=== PATIENT | female | born 1950 | race Caucasian/White ===

== ENCOUNTER 2017-11-29 11:15 | Emergency (ER) | payer MEDICARE ==
[2017-11-29 11:49] VITALS: BP 153/81; PULSE 86; RESP 20; TEMP 98.6; O2SAT 96
[2017-11-29] MEDS ORDERED: COUM10TA PO ×4 (12:07)
[2017-11-29] MEDS ORDERED: DICY10 PO (12:07)
[2017-11-29] MEDS ORDERED: TELM1TAB56 PO (12:07)
[2017-11-29] MEDS ORDERED: DILT60TA33 PO (12:07)
[2017-11-29] MEDS ORDERED: METO25TA3 PO (12:09)
[2017-11-29] MEDS ORDERED: TOPI100 PO (12:09)
[2017-11-29] MEDS ORDERED: SODIUM CHLOR 0.9% 1000 ML INJ 1,000 ML IV SCH (12:15)
[2017-11-29] MEDS ORDERED: PANTOPRAZOLE SODIUM 40 MG VIAL IVP ONE (12:15)
[2017-11-29] MEDS ORDERED: metroNIDAZOLE 500 MG INJ 100 ML IV ONE (12:15)
[2017-11-29] MEDS ORDERED: LEVOFLOXACIN 750 MG PREMIX INJ 150 ML IV ONE (12:15)
--- NOTE | 2017-11-29 12:15 | PD ---
HPI Chief Complaint: GI Complaint Time Seen by Provider: 11:55 Travel History International Travel<30 days: No Contact w/Intl Traveler<30days: No Traveled to known affect area: No History of Present Illness HPI 67 years old female complains of abdominal pain and rectal bleeding. Patient has history of recurrent diverticulitis with rectal bleeding for the past few years. 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 Patient checked her INR frequently at home. INR has been in good range recently. Patient started having left lower quadrant abdominal pain with nausea and rectal bleeding since this morning. Patient states the pain in cramping pain is sharp pain localized to left low quadrant of the abdomen. Patient stated the pain radiated to the back. Patient denies any fever chills. PFSH Past Medical History Hx Anticoagulant Therapy: Yes Cardiovascular Problems: Yes Cerebrovascular Accident: Yes Past Surgical History Hysterectomy: Yes Social History Tobacco Use: No Allergies-Medications (Allergen,Severity, Reaction): Coded Allergies: morphine (Verified Allergy, Unknown, 11/29/17) Reported Meds & Prescriptions Reported Meds & Active Scripts Active Ultram (Tramadol HCl) 50 Mg Tab 50 Mg PO Q6H PRN Zofran Odt (Ondansetron Odt) 4 Mg Tab 4 Mg SL Q6HR PRN Flagyl (Metronidazole) 500 Mg Tab 500 Mg PO TID Cipro (Ciprofloxacin HCl) 500 Mg Tab 500 Mg PO BID Reported Metoprolol Tartrate 25 Mg Tab 25 Mg PO BID Topamax (Topiramate) 100 Mg Tab 100 Mg PO BID Coumadin (Warfarin) 10 Mg Tab 10 Mg PO M,T,W,,SAT Coumadin (Warfarin) 10 Mg Tab 12 Mg PO MONDAY Coumadin (Warfarin) 10 Mg Tab 12 Mg PO MONDAY Cardizem (Diltiazem HCl) 60 Mg Tab 120 Mg PO HS Micardis (Telmisartan) 80 Mg Tab 80 Mg PO DAILY Bentyl (Dicyclomine HCl) 10 Mg Cap 10 Mg PO QID Review of Systems General / Constitutional: No: Fever Eyes: No: Visual changes HENT: No: Headaches Cardiovascular: No: Chest Pain or Discomfort Respiratory: No: Shortness of Breath Gastrointestinal: Positive: Abdominal Pain, Hematochezia Genitourinary: No: Dysuria Musculoskeletal: No: Pain Skin: No Rash Neurologic: No: Weakness Psychiatric: No: Depression Endocrine: No: Polydipsia Hematologic/Lymphatic: No: Easy Bruising Physical Exam Narrative GENERAL: Well-nourished, well-developed patient. SKIN: Focused skin assessment warm/dry. HEAD: Normocephalic. EYES: No scleral icterus. No injection or drainage. NECK: Supple, trachea midline. No JVD or lymphadenopathy. CARDIOVASCULAR: Regular rate and rhythm without murmurs, gallops, or rubs. RESPIRATORY: Breath sounds equal bilaterally. No accessory muscle use. GASTROINTESTINAL: Abdomen soft, nondistended. Patient has moderate tenderness on palpation left lower quadrant of the abdomen. No rebound tenderness. No mass. Rectal exam shows yellow stool with trace of reddish discoloration. Hemoccult positive. MUSCULOSKELETAL: No cyanosis, or edema. BACK: Nontender without obvious deformity. No CVA tenderness. Neurologic exam normal. Data Data Last Documented VS Vital Signs Date Time Temp Pulse Resp B/P (MAP) Pulse Ox O2 Delivery O2 Flow Rate FiO2 11/29/17 16:07 70 109/68 (82) 97 11/29/17 11:49 98.6 20 Orders Orders Complete Blood Count With Diff (11/29/17 12:06) Comprehensive Metabolic Panel (11/29/17 12:06) Prothrombin Time / Inr (Pt) (11/29/17 12:06) Act Partial Throm Time (Ptt) (11/29/17 12:06) Urinalysis - C+S If Indicated (11/29/17 12:06) Iv Access Insert/Monitor (11/29/17 12:06) Ecg Monitoring (11/29/17 12:06) Oximetry (11/29/17 12:06) Sodium Chlor 0.9% 1000 Ml Inj (Ns 1000 M (11/29/17 12:15) Pantoprazole Inj (Protonix Inj) (11/29/17 12:15) Levofloxacin 750 Mg Premix Inj (Levaquin (11/29/17 12:15) Metronidazole 500 Mg Inj (Flagyl 500 Mg (11/29/17 12:15) Tramadol (Ultram) (11/29/17 14:15) Ed Discharge Order (11/29/17 14:09) Labs Laboratory Tests Test 11/29/17 12:00 11/29/17 15:20 White Blood Count 6.8 TH/MM3 Red Blood Count 4.84 MIL/MM3 Hemoglobin 14.9 GM/DL Hematocrit 44.8 % Mean Corpuscular Volume 92.6 FL Mean Corpuscular Hemoglobin 30.8 PG Mean Corpuscular Hemoglobin Concent 33.2 % Red Cell Distribution Width 12.5 % Platelet Count 279 TH/MM3 Mean Platelet Volume 7.9 FL Neutrophils (%) (Auto) 72.7 % Lymphocytes (%) (Auto) 15.6 % Monocytes (%) (Auto) 9.7 % Eosinophils (%) (Auto) 1.3 % Basophils (%) (Auto) 0.7 % Neutrophils # (Auto) 4.9 TH/MM3 Lymphocytes # (Auto) 1.1 TH/MM3 Monocytes # (Auto) 0.7 TH/MM3 Eosinophils # (Auto) 0.1 TH/MM3 Basophils # (Auto) 0.0 TH/MM3 CBC Comment DIFF FINAL Differential Comment Prothrombin Time 19.9 SEC Prothromb Time International Ratio 2.0 RATIO Activated Partial Thromboplast Time 36.6 SEC Blood Urea Nitrogen 21 MG/DL Creatinine 0.97 MG/DL Random Glucose 112 MG/DL Total Protein 8.0 GM/DL Albumin 3.9 GM/DL Calcium Level 8.6 MG/DL Alkaline Phosphatase 88 U/L Aspartate Amino Transf (AST/SGOT) 20 U/L Alanine Aminotransferase (ALT/SGPT) 28 U/L Total Bilirubin 0.4 MG/DL Sodium Level 140 MEQ/L Potassium Level 3.5 MEQ/L Chloride Level 108 MEQ/L Carbon Dioxide Level 23.8 MEQ/L Anion Gap 8 MEQ/L Estimat Glomerular Filtration Rate 57 ML/MIN Urine Color YELLOW Urine Turbidity CLOUDY Urine pH 8.5 Urine Specific [place] 1.011 Urine Protein NEG mg/dL Urine Glucose (UA) NEG mg/dL Urine Ketones NEG mg/dL Urine Occult Blood TRACE Urine Nitrite NEG Urine Bilirubin NEG Urine Leukocyte Esterase TRACE Urine RBC 0-3 /hpf Urine WBC 3-5 /hpf Urine Squamous Epithelial Cells 0-5 /hpf Urine Amorphous Sediment LARGE Microscopic Urinalysis Comment CULT NOT INDICATED MDM Medical Decision Making Medical Screen Exam Complete: Yes Emergency Medical Condition: Yes Interpretation(s) 12:57 PM. CBC WBC 6.8. Hemoglobin 14.9 hematocrit 44.8. Neutrophil 72. BUN 21. INR 2.0. Differential Diagnosis Differential diagnosis including diverticulitis, IV malformation, hemorrhoid bleed, hypercoagulation. Narrative Course 67 years old female with left lower quadrant abdominal pain and rectal bleeding. History of factor V deficiency on Coumadin. Normal saline solution 100 cc an hour. Protonix 40 mg IV. Levaquin 750 mg IV. Flagyl 500 mg IV. HemaPrompt Point of Care Internal Pos. & Neg. Controls: Passed Fecal Specimen Occult Blood: Positive Diagnosis Primary Impression: Acute diverticulitis Additional Impression: GI bleed Qualified Codes: K92.2 - Gastrointestinal hemorrhage, unspecified Patient Instructions: General Instructions Additional Instructions: Cipro and Flagyl as directed. Take INR daily while on antibiotic. Follow-up with personal physician. Return if increasing rectal bleeding, severe abdominal pain, fever. Med/Other Pt SpecificInfo: Prescription(s) given Scripts Tramadol (Ultram) 50 Mg Tab 50 MG PO Q6H Y for PAIN, #10 TAB 0 Refills Prov: Petros Real MD 11/29/17 Ondansetron Odt (Zofran Odt) 4 Mg Tab 4 MG SL Q6HR Y for Nausea/Vomiting, #10 TAB 0 Refills Prov: Petros Real MD 11/29/17 Metronidazole (Flagyl) 500 Mg Tab 500 MG PO TID for Infection, #30 TAB 0 Refills Prov: Petros Real MD 11/29/17 Ciprofloxacin (Cipro) 500 Mg Tab 500 MG PO BID for Infection, #20 TAB 0 Refills Prov: Petros Real MD 11/29/17 Disposition: 01 DISCHARGE HOME Condition: Stable Petros Real MD Nov 29, 2017 12:14
[2017-11-29 12:26] LABS: AUTOMATED NEUTROPHIL # 4.9 TH/MM3 (1.8-7.7); BASOPHIL % 0.7 % (0.0-2.0); EOSINOPHIL # 0.1 TH/MM3 (0-0.4); EOSINOPHIL % 1.3 % (0.0-4.0); HEMATOCRIT 44.8 % (35.0-46.0); HEMOGLOBIN 14.9 GM/DL (11.6-15.3); LYMPH % 15.6 % (9.0-44.0); LYMPHOCYTE # 1.1 TH/MM3 (1.0-4.8); MEAN CELL VOLUME 92.6 FL (80.0-100.0); MEAN CORPUSCULAR HEMOGLOBIN 30.8 PG (27.0-34.0); MEAN CORPUSCULAR HGB CONC 33.2 % (32.0-36.0); MEAN PLATELET VOLUME 7.9 FL (7.0-11.0); MONO % 9.7 % (0.0-8.0); MONOCYTE # 0.7 TH/MM3 (0-0.9); NEUT % 72.7 % (16.0-70.0); PLATELET COUNT 279 TH/MM3 (150-450); RED BLOOD COUNT 4.84 MIL/MM3 (4.00-5.30); RED CELL DISTRIBUTION WIDTH 12.5 % (11.6-17.2); WHITE BLOOD COUNT 6.8 TH/MM3 (4.0-11.0)
[2017-11-29 12:28] VITALS: O2SAT 96
[2017-11-29 12:34] LABS: CHLORIDE 108 MEQ/L (98-107); SODIUM (NA) 140 MEQ/L (136-145)
[2017-11-29 12:37] LABS: ALBUMIN 3.9 GM/DL (3.4-5.0); BICARBONATE 23.8 MEQ/L (21.0-32.0); BLOOD UREA NITROGEN 21 MG/DL (7-18); CALCIUM 8.6 MG/DL (8.5-10.1); GLUCOSE,RANDOM 112 MG/DL (74-106)
[2017-11-29 12:38] LABS: PROTHROMBIN TIME - PATIENT 19.9 SEC (9.8-11.6)
[2017-11-29 12:40] LABS: ALT (GPT) 28 U/L (10-53); AST (GOT) 20 U/L (15-37); CREATININE 0.97 MG/DL (0.50-1.00); GLOMERULAR FILTRATION RATE 57 ML/MIN (>89)
[2017-11-29 12:42] LABS: TOTAL BILIRUBIN ADULT 0.4 MG/DL (0.2-1.0)
[2017-11-29 12:43] LABS: ALKALINE PHOSPHATASE 88 U/L (45-117)
[2017-11-29] MEDS ORDERED: CIPR-9 PO (13:01)
[2017-11-29] MEDS ORDERED: METR-1 PO (13:01)
[2017-11-29] MEDS ORDERED: ZOFR4TAB3 SL (14:08)
[2017-11-29] MEDS ORDERED: TRAM50 PO (14:08)
[2017-11-29] MEDS ORDERED: traMADol HCL 50 MG TAB PO ONE (14:15)
[2017-11-29 15:40] LABS: BILIRUBIN, URINE NEG (NEG); BLOOD, URINE TRACE (NEG); GLUCOSE,URINE NEG (NEG); KETONE, URINE NEG (NEG); NITRITE,URINE NEG (NEG); PH, URINE 8.5 (5.0-8.5); URINE LEUKOCYTE ESTERASE TRACE (NEG)
[2017-11-29 15:57] LABS: URINE COLOR YELLOW (YELLW/STRAW)
[2017-11-29 15:58] LABS: RBC, URINE 0-3 /hpf (0-3); SQUAMOUS EPITHELIAL CELL URINE 0-5 /hpf (0-5)
[2017-11-29 15:59] LABS: AMORPHOUS SEDIMENT, URINE LARGE
[2017-11-29 16:07] VITALS: BP 109/68
== END 2017-11-29 16:09 | disposition home or self-care (01) ==
LOC: PHED 11:15
DX: K57.92 Diverticulitis of intestine, part unspecified, without perforation or abscess without bleeding (principal); K92.2 Gastrointestinal hemorrhage, unspecified; Z86.711 Personal history of pulmonary embolism; Z86.718 Personal history of other venous thrombosis and embolism; Z86.73 Personal history of transient ischemic attack (TIA), and cerebral infarction without residual deficits; Z79.01 Long term (current) use of anticoagulants; Z88.5 Allergy status to narcotic agent
CPT/HCPCS: 80053; 81001; 85025; 85610; 85730; 96361; 96365; 96366; 96367; 96375; 99284; C9113; J1956; J7030